=== PATIENT | male | born 1960 | race Caucasian/White ===

== ENCOUNTER 2023-02-14 07:42 | Day surgery (SDC) | payer OTHER ==
[2023-02-09 11:27] VITALS: BMI 25.7
[2023-02-14] MEDS ORDERED: SODIUM CHLORIDE 0.9% 500 ML 500 ML IV ONE (08:03)
[2023-02-14 08:08] VITALS: TEMP 97.7
[2023-02-14] MEDS ORDERED: fentaNYL (PF) 50 MCG/ML 2 ML AMP ONE (08:32)
[2023-02-14] MEDS: BENZOCAINE SPRAY 1 CAN TOPICAL ONE ×2 (09:10→09:19)
[2023-02-14] MEDS ORDERED: fentaNYL (PF) 50 MCG/ML 2 ML AMP IV ONE (09:18)
[2023-02-14] MEDS: MIDAZOLAM 2 MG/2 ML VIAL IV ONE ×2 (09:18→09:21)
--- NOTE | 2023-02-14 10:41 | ECHOT ---
TRANSESOPHAGEAL ECHOCARDIOGRAM INDICATION: To evaluate aortic regurgitation in a patient with known bicuspid aortic valve with aortic regurgitation. PROCEDURE NOTE: After obtaining informed consent, transesophageal echocardiogram was performed in left lateral position using an Omniplane probe. Local and IV sedation were obtained using Xylocaine spray, 2 mg of Versed, and 25 mcg of fentanyl. The patient tolerated the procedure well without any obvious immediate complications. Total sedation time was 10 minutes. FINDINGS: 1. Aortic valve is a bicuspid valve. There is ngxotpsi-[id number] aortic regurgitation with mild aortic stenosis. By planimetry, the valve area is 1.6 sq cm. 2. Ascending aorta is not aneurysmally dilated. 3. Mitral valve is anatomically normal. There is mild mitral regurgitation noted. 4. Tricuspid valve is normal. 5. Interatrial septum: There is no evidence of vmyb-ze-gutml shunt by color-flow Doppler or fspaw-pz-hfnm shunt by agitated saline contrast study. 6. Left atrium appears enlarged. Right atrium and right ventricle seen within normal limits. 7. Left ventricle has normal size, shows left ventricular hypertrophy with normal LV systolic function with an ejection fraction of 60%. CONCLUSIONS: 1. Bicuspid aortic valve with [id number] aortic regurgitation with mild aortic stenosis. 2. Normal LV systolic function. 3. No evidence of ascending aortic aneurysm. PLAN: The patient already had a stress test in the office. I will assess his exercise tolerance and will decide on further course of action. BERNICE / CAROLN: [id number] /
[2023-02-14 11:08] VITALS: RESP 16
[2023-02-14 11:11] VITALS: BP 127/68; PULSE 80
== END 2023-02-14 10:47 | disposition home or self-care (01) ==
LOC: CATHCVL 07:42
PROVIDERS: ATTEND Internal Medicine Cardiovascular Disease
DX: I08.0 Rheumatic disorders of both mitral and aortic valves (principal); I27.20 Pulmonary hypertension, unspecified; I10 Essential (primary) hypertension; Z95.2 Presence of prosthetic heart valve; E78.2 Mixed hyperlipidemia
CPT/HCPCS: 93312; 93320; 93325; 99152; J2250; J3010

== ENCOUNTER → 2023-06-06 | Outpatient (CLI) | payer OTHER ==
--- NOTE | 2023-06-06 11:32 | XR ---
Left wrist. HISTORY: Pain following trauma. COMPARISON: None TECHNIQUE: 4 views left wrist are obtained. The carpal bones and articulations are normal. There is a minimally displaced fracture of the proxima l metaphysis of the first metacarpal. The distal radius and ulna are intact. IMPRESSION: Fracture the proximal metaphysis of the first metacarpal.. Remaining osseous structures are intact.
--- NOTE | 2023-06-06 11:39 | XR ---
EXAMINATION TYPE: XR hand complete LT DATE OF EXAM: 06/06/2023 COMPARISON: None HISTORY: Fall, pain TECHNIQUE: 3 view left hand FINDINGS: There is a transverse fracture of the proximal metaphyseal first metacarpal adjacent to the carpometacarpal junction. No additional fractures are evident. Soft tissues appear normal. This frac ture is comminuted with a secondary fracture line extending into the metaphysis. IMPRESSION: 1. Comminuted fracture proximal first metacarpal.
== END | disposition home or self-care (01) ==
LOC: RADXRMAIN 10:55
PROVIDERS: ATTEND Emergency Medicine
DX: S62.232A Other displaced fracture of base of first metacarpal bone, left hand, initial encounter for closed fracture (principal); S63.502A Unspecified sprain of left wrist, initial encounter